=== PATIENT | male | born 1980 | race Caucasian/White ===

== ENCOUNTER 2019-03-30 14:56 | Outpatient (CLI) | payer BC ==
--- NOTE | 2019-03-30 16:51 | ULT ---
TESTICULAR ULTRASOUND WITH DOPPLER: HISTORY: Epididymal cyst. Right sided testicular pain x 1.5 weeks. COMPARISON: None. TECHNIQUE: Palmer scale, color flow, Doppler imaging with spectral waveform analysis performed in the left and rig ht testicle. FINDINGS: RIGHT HEMISCROTUM: Right testicle has an essentially homogeneous echotexture measuring 3.0 x 2.4 x 4.6 cm. There is a no nspecific small echogenic focus in the right testicle which may represent a small 0.3 cm calcificatio n. Right epididymis has a normal echotexture measuring 1.3 x 1.2 cm. There is a 0.3 cm hypoechoic fo cus in the right epididymis which may represent a small complex epididymal cyst. There is no signific ant fluid in the right hemiscrotum. LEFT TESTICLE: Left testicle has a homogeneous echotexture. No intratesticular mass. Left testicle measures 4.6 x 2. 9 x 2.9 cm. Left epididymis has an anechoic focus measuring 1.5 cm likely representing epididymal cys t. Overall left epididymis measures 2.1 x 1.7 cm. Trace amount of fluid in the left hemiscrotum. TESTICULAR DOPPLER: There is symmetric vascular flow to the left and right testicle. IMPRESSION: 1. Symmetric vascular flow to both testicles. 2. Small anechoic focus in the right epididymis corresponding to region of pain. Small focal epi didymal cyst, possibly complex, is suspected. Correlate clinically. POS: OFF
== END 2019-03-30 14:57 | disposition home or self-care (01) ==
LOC: SCSULT 14:56
PROVIDERS: ATTEND Family Medicine
DX: N50.3 Cyst of epididymis (principal)
CPT/HCPCS: 76870; 93976

== ENCOUNTER 2024-11-25 10:21 | Outpatient (CLI) | payer BC | END 2024-11-25 10:22 | disposition home or self-care (01) | LOC: SCSRAD 10:21 | PROVIDERS: ATTEND Nurse Practitioner Family | DX: S69.92XA Unspecified injury of left wrist, hand and finger(s), initial encounter (principal) ==

== ENCOUNTER 2025-05-11 12:50 | Outpatient (CLI) | payer BC | END 2025-05-11 12:51 | disposition home or self-care (01) | LOC: SCSRAD 12:50 | PROVIDERS: ATTEND Family Medicine | DX: S29.9XXA Unspecified injury of thorax, initial encounter (principal) ==